=== PATIENT | male | born 1950 | race Two or more races ===

== ENCOUNTER → 2022-02-13 | Emergency (ER) | payer OTHER ==
[~2022-02-13] VITALS: Ht 170.2 cm; Wt 77.1 kg
[~2022-02-13] MED LIST: ELIQUIS5 MG PO; LIPITOR20 MG; NORVASC10 MG; VASOTEC20 M1
== END | disposition designated cancer center or children's hospital (05) ==
LOC: ER 11:03
DX: J90 Pleural effusion, not elsewhere classified (principal); J98.11 Atelectasis; R04.89 Hemorrhage from other sites in respiratory passages; I10 Essential (primary) hypertension; Z88.0 Allergy status to penicillin; Z20.822 Contact with and (suspected) exposure to COVID-19